=== PATIENT | male | born 1935 | race Caucasian/White ===

== ENCOUNTER 2019-11-02 19:58 | Observation (INO) | payer MEDICARE ==
[~2019-11-02] VITALS: Ht 177.8 cm; Wt 102.5 kg
[2019-11-02 20:34] LABS: BASOPHILS % (AUTO) 0.3 % (0.0-5.0); EOSINOPHILS % (AUTO) 0.6 % (0.0-8.0); HEMATOCRIT 41.6 % (42-54); LYMPHOCYTES % (AUTO) 6.1 % (21.0-51.0); MEAN CORPUSCULAR HEMOGLOBIN 32.3 pg (27.0-33.0); MEAN CORPUSCULAR HGB CONC 34.5 g/dL (32.0-36.0); MEAN CORPUSCULAR VOLUME 93.5 fL (79-99); MONOCYTES % (AUTO) 6.3 % (3.0-13.0); NEUTROPHILS % (AUTO) 86.7 % (40.0-77.0); PLATELET COUNT (AUTO) 163 K/uL (130-400); RED BLOOD CELL COUNT(AUTO) 4.45 MIL/uL (4.50-6.20); RED CELL DISTRIBUTION WIDTH 13.4 % (11.0-15.5)
[2019-11-02 20:45] LABS: CREATININE 1.5 mg/dL (0.5-1.5); POTASSIUM 4.6 mmol/L (3.5-5.1)
[2019-11-02 20:49] LABS: INR 1.13 (0.85-1.15); PARTIAL THROMBOPLASTIN TIME 28.5 SEC (26.3-35.5); PROTHROMBIN TIME 11.8 SEC (9.6-11.6)
[2019-11-02 20:50] LABS: ALBUMIN 4.1 g/dL (3.5-5.0); BILIRUBIN,TOTAL 1.1 mg/dL (0.2-1.0)
[2019-11-02] MEDS ORDERED: ENOXAPARIN SODIUM 100 MG/1 ML SQ ONE (22:51)
[2019-11-02] MEDS: NITROGLYCERIN 1GM/1 INCH PACKET TD SCH (23:00)
[2019-11-02] MEDS ORDERED: HYDRALAZINE HCL 20 MG/ML VIAL IV PRN (23:15)
[2019-11-03] MEDS ORDERED: NITROGLYCERIN 1GM/1 INCH PACKET TD ONE (00:25)
[2019-11-03 00:57] LABS: CREATINE KINASE, TOTAL 80 U/L (21-232); MYOGLOBIN 80 ng/mL (10-92); TROPONIN I < 0.04 ng/mL (0.00-0.06)
[2019-11-03 01:50] VITALS: BP 143/69
[2019-11-03] MEDS ORDERED: GLIM4TAB5 PO (02:01)
[2019-11-03] MEDS ORDERED: LOVA20TA3 PO (02:01)
[2019-11-03] MEDS ORDERED: FENO160 PO (02:01)
[2019-11-03] MEDS ORDERED: METO50TA18 PO (02:01)
[2019-11-03] MEDS ORDERED: ISOS20TA7 PO (02:01)
[2019-11-03] MEDS ORDERED: GABA-529 PO (02:01)
[2019-11-03] MEDS ORDERED: APIX5TAB PO (02:01)
[2019-11-03] MEDS ORDERED: MORPHINE SULFATE 2 MG/ML 1ML SYG ONE (02:23)
[2019-11-03] MEDS ORDERED: MORPHINE SULFATE 4 MG/1ML SYG IV PRN (02:30)
[2019-11-03 04:16] VITALS: BP 100/57
[2019-11-03] MEDS: INSULIN HUMULIN R 100 UNIT/ML 3ML SQ SCH ×4 (05:51→20:20)
[2019-11-03] MEDS: NITROGLYCERIN 1GM/1 INCH PACKET TD SCH ×3 (05:53→23:04)
[2019-11-03 07:49] LABS: BASOPHILS % (AUTO) 0.6 % (0.0-5.0); EOSINOPHILS % (AUTO) 0.2 % (0.0-8.0); HEMATOCRIT 35.7 % (42-54); LYMPHOCYTES % (AUTO) 13.4 % (21.0-51.0); MEAN CORPUSCULAR HEMOGLOBIN 31.9 pg (27.0-33.0); MEAN CORPUSCULAR HGB CONC 34.5 g/dL (32.0-36.0); MEAN CORPUSCULAR VOLUME 92.4 fL (79-99); MONOCYTES % (AUTO) 8.9 % (3.0-13.0); NEUTROPHILS % (AUTO) 76.9 % (40.0-77.0); PLATELET COUNT (AUTO) 156 K/uL (130-400); RED BLOOD CELL COUNT(AUTO) 3.87 MIL/uL (4.50-6.20); RED CELL DISTRIBUTION WIDTH 13.4 % (11.0-15.5); WHITE BLOOD COUNT (AUTO) 8.4 K/uL (4.8-10.8)
[2019-11-03 07:55] VITALS: BP 112/57
[2019-11-03 08:10] LABS: ALBUMIN 3.4 g/dL (3.5-5.0); BILIRUBIN,TOTAL 1.3 mg/dL (0.2-1.0); CREATININE 1.6 mg/dL (0.5-1.5); POTASSIUM 4.1 mmol/L (3.5-5.1)
[2019-11-03 08:28] LABS: CHOLESTEROL 119 mg/dL (<200); HDL CHOLESTEROL 30 mg/dL (29-71); LDL DIRECT 62 mg/dL (0-99); TRIGLYCERIDES 196 mg/dL (30-200)
[2019-11-03] MEDS ORDERED: METOPROLOL TARTRATE 25 MG TAB PO SCH (09:00)
[2019-11-03] MEDS ORDERED: FAMOTIDINE 20MG TAB 20 MG TAB PO SCH (09:00)
[2019-11-03] MEDS: ENOXAPARIN SODIUM 30 MG/0.3 ML SQ SCH (10:18)
[2019-11-03] MEDS: ASPIRIN 81MG TAB.CHEW PO SCH (10:20)
--- NOTE | 2019-11-03 11:33 | NUR ---
T/C TO SHAHEED, 2DSpotsetter T/C PLACED TO SHAHEED AT 1081, LEFT MESSAGE TO CALL BACK AT [phone] OR [phone].
[2019-11-03 11:38] VITALS: BP 104/59
--- NOTE | 2019-11-03 11:43 | NUR ---
CALL TO NUCLEAR MEDICINE T/C PLACED TO NUCLEAR MEDICINE, SPOKE WITH SHAHEED, NUCLEAR Browsy, INFORMED THAT WANTS TO BE CALLED AND BE PRESENT AT THE TIME LEXISCAN IS BEING DONE.
[2019-11-03] MEDS ORDERED: MAG HYDROX/AL HYDROX/SIMETH ES 30 ML SUSP UDCUP PO SCH (12:00)
[2019-11-03] MEDS ORDERED: MAG HYDROX/AL HYDROX/SIMETH ES 30 ML SUSP UDCUP PO PRN (12:00)
--- NOTE | 2019-11-03 12:00 | NUR ---
pt has no vesicles not on skin, extremeties, trunk and head assessed. pt states understanding of need to let nurse know if he does notice any vesicles.
[2019-11-03] MEDS: PANTOPRAZOLE SODIUM 40 MG TABLET.DR PO SCH (12:44)
--- NOTE | 2019-11-03 13:35 | NUR ---
INITIAL ASSESSMENT ME W PT, ALONE, AAOX3, LW SPOUSE, INDP, WALKS W CANE, 4-5 STAIRS UP TO MOBILE HOME, , SHOWER BENCH, SEES DR. FLORES, APPT ON 11/09, DCP IS HOME PENDING PATY IN AM Addendum: 11/04/19 at 1142 by GARY ALCAZAR RN CM Amended: Links added.
--- NOTE | 2019-11-03 14:09 | NUR ---
NURSING OBSERVATION/2 NOVHO PENDING 2 NOVHO, CALL TO SONI DIRECTOR, TO INFORM STILL PENDING 2DECHO
[2019-11-03 16:00] VITALS: BP 107/55
--- NOTE | 2019-11-03 16:45 | NUR ---
pt continues to have no vesicles noted on skin, pt did not have any pain releif of chest pain after taking maalox; i have called 2d echo dep. and received no answer, message left on answering machine asking when the the test was to be done. pending call back
[2019-11-03] MEDS: METOPROLOL TARTRATE 50 MG TAB PO SCH (19:48)
[2019-11-03 20:16] VITALS: BP 142/70
[2019-11-03] MEDS ORDERED: GABAPENTIN 100 MG CAPSULE PO SCH (21:00)
[2019-11-03] MEDS ORDERED: ATORVASTATIN CALCIUM 10 MG TABLET PO SCH (21:00)
[2019-11-03] MEDS ORDERED: FENOFIBRATE 160 MG PO SCH (21:00)
[2019-11-03] MEDS ORDERED: ISOSORBIDE MONONITRATE 20 MG TABLET PO SCH (21:00)
[2019-11-04 00:16] VITALS: BP 113/61
[2019-11-04 04:16] VITALS: BP 129/67
[2019-11-04] MEDS: INSULIN HUMULIN R 100 UNIT/ML 3ML SQ SCH ×3 (05:35→16:08)
[2019-11-04] MEDS: NITROGLYCERIN 1GM/1 INCH PACKET TD SCH ×2 (05:40→15:00)
[2019-11-04 07:35] VITALS: BP 121/71
[2019-11-04] MEDS ORDERED: REGADENOSON 0.4 MG/5 ML PF SYG IVP SCH (07:45)
[2019-11-04] MEDS: ENOXAPARIN SODIUM 30 MG/0.3 ML SQ SCH (09:00)
[2019-11-04] MEDS: METOPROLOL TARTRATE 50 MG TAB PO SCH (09:17)
[2019-11-04 13:23] VITALS: BP 151/78
[2019-11-04] MEDS: PANTOPRAZOLE SODIUM 40 MG TABLET.DR PO SCH (13:43)
[2019-11-04] MEDS: ASPIRIN 81MG TAB.CHEW PO SCH (13:43)
[2019-11-04 16:15] VITALS: BP 126/68
--- NOTE | 2019-11-04 19:20 | NUR ---
PATIENT GIVEN DISCHARGE INSTRUCTIONS AND VERBALIZED UNDERSTANDING, TELEMETRY NOTIFIED OF DISCHARGE STATUS AND TELEMETRY UNIT REMOVED, IV D/C WITH CATHETER INTACT AND PRESSURE HELD ON SITE THEN SITE DRESSED , INSTRUCTED ON FOLLOW-UP APPOINTMENT WITH HIS PCP ( PATIENT HAS APPOINTMENT ON THE 11/08/19 WITH HIS PRIMARY) REVIEWED APPOINTMENT WITH DR SEWELL AND APPOINTMENT IN DEC TO HAVE HIS PACEMAKER CHECKED. RX FOR PROTONIX 40 MG PO DAILY CALLED IN TO [facility] IN [place] PER PATIENT REQUEST. NO QUESTIONS OR CONCERNS AT THIS TIME . PATIENT TAKING BY WHEELCHAIR TO LOBBY AND LEFT WITH FOR HOME
== END 2019-11-04 19:55 | disposition home or self-care (01) ==
LOC: EDH 19:58 → EDHIP 22:58 → 4AH 11-03 01:04
PROVIDERS: ADMIT Hospitalist; ATTEND Hospitalist
DX: R07.89 Other chest pain (principal); I10 Essential (primary) hypertension; E78.5 Hyperlipidemia, unspecified; I48.0 Paroxysmal atrial fibrillation; I25.10 Atherosclerotic heart disease of native coronary artery without angina pectoris; G47.33 Obstructive sleep apnea (adult) (pediatric); E11.65 Type 2 diabetes mellitus with hyperglycemia; N28.9 Disorder of kidney and ureter, unspecified; E66.9 Obesity, unspecified; E11.51 Type 2 diabetes mellitus with diabetic peripheral angiopathy without gangrene; Z95.5 Presence of coronary angioplasty implant and graft; Z95.0 Presence of cardiac pacemaker; Z79.01 Long term (current) use of anticoagulants; Z79.84 Long term (current) use of oral hypoglycemic drugs; Z79.899 Other long term (current) drug therapy; Z68.31 Body mass index [BMI] 31.0-31.9, adult
CPT/HCPCS: 36415 ×2; 71045; 78452; 80053 ×2; 80061; 82550 ×2; 82948 ×7; 83036; 83874; 84484 ×3; 85025 ×2; 85610; 85730; 93005 ×2; 93017; 93306; 96372 ×2; 96374 ×2; 99284; A9500 ×2; G0378 ×42; J1650 ×2; J1815 ×5; J2270 ×2; J2785